=== PATIENT | male | born 1935 | race Caucasian/White ===

== ENCOUNTER → 2023-11-22 09:30 | Outpatient (POV) | payer MEDICARE, OTHER, SELFPAY ==
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
[2023-11-22 13:00] VITALS: BMI 31.8
== END | disposition home or self-care (01) ==
PROVIDERS: Visit Provider Nurse Practitioner Family
DX: M50.30 Other cervical disc degeneration, unspecified cervical region; G89.4 Chronic pain syndrome; M51.16 Intervertebral disc disorders with radiculopathy, lumbar region
CPT/HCPCS: 99202; G0463